=== PATIENT | male | born 1985 | race Caucasian/White ===

== ENCOUNTER 2023-12-05 17:51 | Emergency (ER) | payer OTHER, SELFPAY ==
--- NOTE | ~2023-12-05 | XR_ITS ---
EXAMINATION: XR FOOT, LEFT CLINICAL INFORMATION: Pain COMPARISON: None available. TECHNIQUE: AP, lateral, and oblique views of the left foot. FINDINGS: The bones and soft tissues are normal. No fracture. Alignment is anatomic. Joint spaces are maintained. XR/XR foot LT min 3V IMPRESSION: Normal left foot. Electronically signed by: Bernie Garsia MD 12/05/2023 08:04 PM EDT RP
[2023-12-05 18:16] VITALS: BP 146/97; PULSE 98; RESP 20; TEMP 36.8; O2SAT 98; BMI 37.9
--- NOTE | 2023-12-05 18:36 | ED_ITS ---
HPI - Extremity Problem General Chief complaint: Extremity Problem Stated complaint: woke up w/ foot pain + swelling Time Seen by Provider: 12/05/23 23:18 Source: patient Mode of arrival: ambulatory Limitations: no limitations History of Present Illness ED Provider: Dr. Yaquelin Herrmann HPI Narrative: Patient comes to the emergency room complaining of severe pain to very slight touch to the dorsum of the left great toe. Patient states that it started last night. Patient states that his toe seems slightly swollen, did not sustain any injuries. Patient states that he wears socks or shoes it hurts way too much. Patient denies any redness. Related Data Previous Rx's ?Medication ?Instructions ?Recorded colchicine 0.6 mg tablet 0.6 mg PO BID #14 tabs 12/05/23 prednisone 50 mg tablet 50 mg PO DAILY #4 tabs 12/05/23 Allergies Allergy/AdvReac Type Severity Reaction Status Date / Time oxycodone [OXYCODONE] AdvReac Intermediate VOMITING Verified 12/05/23 18:19 Sulfa (Sulfonamide AdvReac Unknown DIARRHEA,VO Verified 12/05/23 18:19 Antibiotics) MITTING,JUAN [SULFA (SULFONAMIDE SEA ANTIBIOTICS)] Review of Systems 2 Review of Systems: Constitutional : No Weight loss, No Fever, No Chills, No Night Sweats, No Fatigue, No Malaise ENT/Mouth : No Hearing loss, No Ear Pain, No Nasal Congestion, No Sinus Pain, No Hoarseness, No sore throat, No Rhinorrhea, No Swallowing Difficulty Eyes: No Eye Pain, No Swelling, No Redness, No Foreign Body, No Discharge, No Vision Changes Cardiovascular : No Chest Pain, No SOB, No Dyspnea on Exertion, No Orthopnea, No Edema, No Palpitations Respiratory : No Cough, No Sputum, No Wheezing, No Smoke Exposure, No Dyspnea Gastrointestinal : No Nausea, No Vomiting, No Diarrhea, No Constipation, No abdominal Pain, No Hematochezia, No Melena Genitourinary : no irregular bleeding, No Dysuria, No Urinary Frequency, No Hematuria, No Urinary Incontinence, No Urgency, No Flank Pain, No Urinary Flow Changes, No Hesitancy Musculoskeletal : No joint pain, No Myalgias, No Joint Swelling Skin : complaining of sensitivity over the skin over the great toe on the left Neuro : No Weakness, No Numbness, No Paresthesias, No Loss of Consciousness, No Dizziness, No Headache Psych : No Anxiety/Panic, No Depression, No SI/HI/AH/VH, No Social Issues, Heme/Lymph: No Bruising, No Bleeding,No Lymphadenopathy Endocrine : No Polyuria, No Polydipsia, No Temperature Intolerance [facility] Social History Social History Advance Directives: No Advance Directives Information Provided: No Physical Exam 2 Vital Signs: Vital Signs: Last Vital Signs Temp 97.7 F 12/05/23 22:22 Pulse 80 12/05/23 22:22 Resp 18 12/05/23 22:22 BP 127/91 H 12/05/23 22:22 Pulse Ox 99 12/05/23 22:22 O2 Del Method Room Air 12/05/23 22:22 BMI result Body Mass Index 37.9 Const: Other: Appearance: Alert. Oriented X3. No acute distress. Eyes: Pupils equal, round and reactive to light. ENT: Pharynx normal. Neck: Normal inspection. Neck supple. No lymph nodes noted. No crepitus CVS: Normal heart rate and rhythm. Pulses normal. Normal S1 and S2 Respiratory: No respiratory distress. Breath sounds normal. No Wheezing. No rales Abdomen: Soft and nontender. No rigidity. No distention. Skin: Skin warm and dry. Normal skin color. Normal skin turgor. Extremities: No lower extremity edema. No Lacerations. No Rash. Left greater toe looks slightly swollen, not erythematous. However seems a little bit warm. Very tender to touch with the slightest touch to the skin on the dorsum of the left foot Neuro: Oriented X 3. No motor deficit. No sensory deficit. Moving all extremities. No slurred speech. CN 2 through 12 grossly intact Psych: calm, cooperative, normal affect Course Course Course Narrative: This is an RME: Additional HPI, ROS, PE not included below will be deferred to primary provider. RME assessment and note performed by: Lola Christopher PA-C This is a 38-year-old male who presents emergency department with complaints of left great toe pain since last night. No injury or trauma. No history of gout Plan: X-ray, labs Medical Decision Making Medical Decision Making MDM Narrative: my interpretation of labs, normal hematology and chemistry, normal x-ray. - I discussed with the patient that most likely he has gout. Patient given p.o. colchicine and prednisone. A uric acid level was added to patient's labs. - Patient instructed to follow-up with his primary care physician, discussed with the patient that he will need to follow a diet to prevent exacerbations. Patient agrees with plan. - patient can barely tolerate being touched on the dorsum of the foot on the skin. Diagnosis most consistent with gout rather than a septic joint. Patient has no fever or chills, normal white blood cell count. Differential Diagnosis Differential Diagnoses: The differential diagnosis associated with the presentation includes ( Gout, septic joint , contusion, dislocation) Lab Data MDM Lab Attestation statement: I reviewed the patient's lab results. 12/05/23 19:00 12/05/23 19:00 Labs: Lab Results 12/05/23 Range/Units 19:00 WBC 8.7 (4.8-10.8) X10*3/uL RBC 5.74 (4.60-5.80) X10*6/uL Hgb 15.9 (14.0-18.0) g/dl Hct 47.6 (42.0-52.0) % MCV 82.9 (80.0-98.0) fL MCH 27.7 (27.0-33.0) pg MCHC 33.4 (31.0-36.0) g/dl RDW 13.2 (11.0-16.0) % Plt Count 188 (160-400) X10*3/uL MPV 10.4 (9.4-12.4) fL Immature Gran % (Auto) 0.3 (0.0-0.4) % Neut % (Auto) 72.4 (45-73) % Lymph % (Auto) 22.2 (20-40) % [place] % (Auto) 3.9 (2-11) % Eos % (Auto) 1.0 (0-4) % Baso % (Auto) 0.2 (0-2) % Lymph # (Auto) 1.9 (1.2-4.9) X10*3/uL [place] # (Auto) 0.3 (0.1-1.2) X10*3/uL Eos # (Auto) 0.1 (0.0-0.4) X10*3/uL Baso # (Auto) 0.0 (0.0-0.2) X10*3/uL Abs Immat Gran (auto) 0.03 (0.00-0.03) X10*3/uL Absolute Neuts (auto) 6.3 (2.0-8.3) x10*3/uL Absolute Nucleated RBC 0.000 (0.0-0.012) X10*3/uL Nucleated RBC % (auto) 0.0 (0.0-0.2) /100WBC ESR 9 (0-15) MM/HR Sodium 140 (135-145) mmol/L Potassium 4.0 (3.3-5.1) mmol/L Chloride 107 (96-108) mmol/L Carbon Dioxide 26 (22-29) mmol/L Anion Gap 11 L (12-20) BUN 30 H (9-16) mg/dL Creatinine 1.18 (0.5-1.4) mg/dL Estim Creat Clear Calc 104.8 Estimated GFR > 60 Random Glucose 103 (60-115) mg/dL Uric Acid 5.6 (3.4-7.0) mg/dL Calcium 9.4 (8.4-10.2) mg/dL Total Bilirubin 0.4 (0.0-1.0) mg/dL AST 17 (5-37) U/L ALT 25 (0-40) U/L Alkaline Phosphatase 106 (39-117) U/L C-Reactive Protein 1.13 H (< or = 0.50) mg/dL Total Protein 7.6 (6.5-8.0) g/dL Albumin 4.3 (3.5-5.0) g/dL Discharge Plan Discharge Clinical Impression: Gout Patient Disposition: Home, Self-Care Instructions: Gout (ED) Additional Instructions: Please follow-up with your primary care physician tomorrow. If you have any worsening or new symptoms, please return to the emergency room or call 911 Prescriptions: New colchicine 0.6 mg tablet 0.6 mg PO BID Qty: 14 0RF prednisone 50 mg tablet 50 mg PO DAILY Qty: 4 0RF Stand Alone Forms: Work/School Release Print Language: Icelandic
[2023-12-05 19:05] LABS: MANUAL DIFF FLAG NO
[2023-12-05 19:07] LABS: Basophils Percent Auto 0.2 % (0-2); Eosinophils Absolute Auto 0.1 X10*3/uL (0.0-0.4); Hematocrit 47.6 % (42.0-52.0); Hemoglobin 15.9 g/dl (14.0-18.0); Imm Gran Abs Auto 0.03 X10*3/uL (0.00-0.03); Imm Gran Pct Auto 0.3 % (0.0-0.4); Lymphocytes Absolute Auto 1.9 X10*3/uL (1.2-4.9); Lymphocytes Percent Auto 22.2 % (20-40); Mean Corpuscular HGB Conc 33.4 g/dl (31.0-36.0); Mean Corpuscular Hemoglobin 27.7 pg (27.0-33.0); Mean Corpuscular Volume 82.9 fL (80.0-98.0); Mean Platelet Volume 10.4 fL (9.4-12.4); Monocytes Absolute Auto 0.3 X10*3/uL (0.1-1.2); Monocytes Percent Auto 3.9 % (2-11); Neutrophils Absolute Auto 6.3 x10*3/uL (2.0-8.3); Neutrophils Percent Auto 72.4 % (45-73); Platelet Count 188 X10*3/uL (160-400); Red Blood Count 5.74 X10*6/uL (4.60-5.80); Red Cell Distribution Width 13.2 % (11.0-16.0); White Blood Count 8.7 X10*3/uL (4.8-10.8)
[2023-12-05 19:33] LABS: Alanine Aminotransferase 25 U/L (0-40); Albumin Level 4.3 g/dL (3.5-5.0); Alkaline Phosphatase 106 U/L (39-117); Anion Gap 11 (12-20); Aspartate Amino Transferase 17 U/L (5-37); Bilirubin Total 0.4 mg/dL (0.0-1.0); Blood Urea Nitrogen 30 mg/dL (9-16); C Reactive Protein 1.13 mg/dL (< or = 0.50); Calcium 9.4 mg/dL (8.4-10.2); Carbon Dioxide 26 mmol/L (22-29); Chloride 107 mmol/L (96-108); Creatinine Clr Calc Pharmacy 104.8; Estimated Glomerular Filt Rate > 60; Glucose Random 103 mg/dL (60-115); Sodium 140 mmol/L (135-145); Total Protein 7.6 g/dL (6.5-8.0)
[2023-12-05 19:34] LABS: Uric Acid 5.6 mg/dL (3.4-7.0)
[2023-12-05 20:03] LABS: Erythrocyte Sedimentation Rate 9 MM/HR (0-15)
[2023-12-05 22:22] VITALS: BP 127/91; PULSE 80; RESP 18; TEMP 36.5; O2SAT 99
[2023-12-05] MEDS: predniSONE 20 MG TABLET 40 MG PO (23:52)
[2023-12-05] MEDS: Colchicine 0.6 MG TABLET 1.2 MG PO (23:54)
[2023-12-06 00:03] VITALS: BP 127/91; PULSE 80; RESP 18; TEMP 36.5; O2SAT 99
== END 2023-12-06 00:05 | disposition home or self-care (01) ==
PROVIDERS: Physician Assistant Medical; Emergency Provider Emergency Medicine; PCP Internal Medicine
DX: M10.9 Gout, unspecified (principal); M79.675 Pain in left toe(s)
CPT/HCPCS: 36415; 73630; 80053; 84550; 85025; 85652; 86140; 99282; 99283